=== PATIENT | female | born 1995 | race Caucasian/White ===

== ENCOUNTER 2016-11-03 01:04 | Emergency (ER) | payer OTHER, BC ==
[2016-11-03] MEDS ORDERED: Ondansetron INJ* 2 MG/ML VIAL IV ONE (01:19)
[2016-11-03] MEDS ORDERED: Ketorolac INJ* 30 MG/ML 1 ML VIAL IV PUSH ONE (01:19)
[2016-11-03] MEDS ORDERED: NS 0.9% 1000 ML* 1,000 ML IV ONE (01:19)
[2016-11-03] MEDS ORDERED: DICYCLOMINE HCL* 20 MG/2 ML VIAL IM ONE (01:19)
[2016-11-03 02:01] LABS: Hematocrit 50 % (35-47); Hemoglobin 16.6 g/dl (12.0-16.0); Mean Corpuscular HGB Conc 33 g/dl (31-36); Mean Corpuscular Hemoglobin 31 pg (27-31); Mean Corpuscular Volume 94 fL (80-97); Mean Platelet Volume 9 um3 (7.4-10.4); Red Blood Count 5.29 10^6/ul (4.0-5.4); Red Cell Distribution Width 13 % (10.5-15); White Blood Count 11.3 10^3/ul (3.5-10.8)
[2016-11-03 02:14] LABS: ALT 28 U/L (7-52); Albumin 5.1 g/dL (3.2-5.2); Alkaline Phosphatase 62 U/L (34-104); BUN/Creatinine Ratio 15.7 (8-20); Blood Urea Nitrogen 14 mg/dL (6-24); CO2 Carbon Dioxide 19 mmol/L (22-32); Calcium 10.9 mg/dL (8.6-10.3); Chloride 102 mmol/L (101-111); EGFR Non-African American 80.9 (>60); Globulin 4.2 g/dL (2-4); Glucose 122 mg/dL (70-100); Lipase 29 U/L (11.0-82.0); Sodium 134 mmol/L (133-145); Total Protein 9.3 g/dL (6.4-8.9)
[2016-11-03 02:35] LABS: AST 32 U/L (13-39); Anion Gap 13 mmol/L (2-11); Potassium 4.2 mmol/L (3.5-5.0)
[2016-11-03] MEDS ORDERED: Iohexol 300* (CONTRAST) 10 ML SDV IV ONE (02:35)
--- NOTE | 2016-11-03 04:21 | ED ---
Abdominal Pain/Female - HPI Summary HPI Summary: Patient presents for evaluation of abdominal pain and nausea. She is concerned for recurrent bowel obstructions. Denies systemic symptoms, new or bad foods. No allev factors attempted. Did not call her PCP or GI doctor today. - History of Current Complaint Chief Complaint: EDNauseaVomitMaría Elenaarrnicole Stated Complaint: GENERAL ILLNESS Time Seen by Provider: 11/03/16 01:12 Hx Obtained From: Patient, Family/Bridge Repair Crew Person Onset/Duration: Gradual Onset Timing: Intermittent Episode Lasting Severity Initially: Moderate Severity Currently: Moderate Pain Intensity: 10 Allergies/Adverse Reactions: Allergies Allergy/AdvReac Type Severity Reaction Status Date / Time Mercaptomerin Allergy Unknown Verified 08/02/16 16:13 Reaction Details PMH/Surg Hx/FS Hx/Imm Hx Endocrine/Hematology History: Denies: Hx Diabetes Cardiovascular History: Denies: Hx Congestive Heart Failure, Hx Hypertension Respiratory History: Reports: Hx Asthma - exercise induced History: Denies: Hx Dialysis, Hx Renal Disease - Surgical History Surgery Procedure, Year, and Place: mult. for crohn's/intuss. has ostomy now Infectious Disease History: No Infectious Disease History: Denies: Traveled Outside the [place] in Last 30 Days - Family History Known Family History: Positive: Hypertension, Diabetes, Other - Thyroid disease Negative: Cardiac Disease - Social History Alcohol Use: None Substance Use Type: Reports: None Smoking Status (MU): Never Smoked Tobacco Review of Systems Negative: Fever, Chills Positive: Abdominal Pain, Nausea All Other Systems Reviewed And Are Negative: Yes Physical Exam Triage Information Reviewed: Yes Vital Signs On Initial Exam: Initial Vitals Temp Pulse Resp BP Pulse Ox 96.5 F 106 16 108/68 100 11/03/16 01:09 11/03/16 01:09 11/03/16 01:09 11/03/16 01:09 11/03/16 01:09 Vital Signs Reviewed: Yes Appearance: Positive: Well-Appearing, Well-Nourished, Pain Distress Skin: Positive: Warm, Skin Color Reflects Adequate Perfusion, Dry Respiratory/Lung Sounds: Positive: Clear to Auscultation, Breath Sounds Present Cardiovascular: Positive: Normal, RRR, Pulses are Symmetrical in both Upper and Lower Extremities, Tachycardia Abdomen Description: Positive: No Organomegaly, Soft, Other: - RLQ ostomy is pink and viable. Diffusely ttp.. Negative: CVA Tenderness (R), CVA Tenderness (L), Distended, Guarding, Hernia @ Bowel Sounds: Positive: Present Musculoskeletal: Positive: Normal, Strength/ROM Intact Neurological: Positive: Normal, Sensory/Motor Intact, Alert, Oriented to Person Place, Time, CN Intact II-III, Reflexes Intact Diagnostics - Vital Signs Vital Signs Temp Pulse Resp BP Pulse Ox 11/03/16 01:09 96.5 F 106 16 108/68 100 - Laboratory Lab Results: Lab Results 11/03/16 11/03/16 Range/Units 01:45 01:45 WBC 11.3 H (3.5-10.8) 10^3/ul RBC 5.29 (4.0-5.4) 10^6/ul Hgb 16.6 H (12.0-16.0) g/dl Hct 50 H (35-47) % MCV 94 (80-97) fL MCH 31 (27-31) pg MCHC 33 (31-36) g/dl RDW 13 (10.5-15) % Plt Count 208 (150-450) 10^3/ul MPV 9 (7.4-10.4) um3 Neut % (Auto) 87.0 H (38-83) % Lymph % (Auto) 4.7 L (25-47) % Whiteside % (Auto) 6.7 (1-9) % Eos % (Auto) 1.5 (0-6) % Baso % (Auto) 0.1 (0-2) % Absolute Neuts (auto) 9.9 H (1.5-7.7) 10^3/ul Absolute Lymphs (auto) 0.5 L (1.0-4.8) 10^3/ul Absolute Monos (auto) 0.8 (0-0.8) 10^3/ul Absolute Eos (auto) 0.2 (0-0.6) 10^3/ul Absolute Basos (auto) 0 (0-0.2) 10^3/ul Absolute Nucleated RBC 0.01 10^3/ul Nucleated RBC % 0 Sodium 134 (133-145) mmol/L Potassium 4.2 (3.5-5.0) mmol/L Chloride 102 (101-111) mmol/L Carbon Dioxide 19 L (22-32) mmol/L Anion Gap 13 H (2-11) mmol/L BUN 14 (6-24) mg/dL Creatinine 0.89 (0.51-0.95) mg/dL Est GFR ( Amer) 104.0 (>60) Est GFR (Non-Af Amer) 80.9 (>60) BUN/Creatinine Ratio 15.7 (8-20) Glucose 122 H (70-100) mg/dL Calcium 10.9 H (8.6-10.3) mg/dL Total Bilirubin 0.60 (0.2-1.0) mg/dL AST 32 (13-39) U/L ALT 28 (7-52) U/L Alkaline Phosphatase 62 (34-104) U/L Total Protein 9.3 H (6.4-8.9) g/dL Albumin 5.1 (3.2-5.2) g/dL Globulin 4.2 H (2-4) g/dL Albumin/Globulin Ratio 1.2 (1-3) Lipase 29 (11.0-82.0) U/L Beta HCG, Quant < 0.60 mIU/mL Result Diagrams: 11/03/16 01:45 11/03/16 01:45 Lab Statement: Any lab studies that have been ordered have been reviewed, and results considered in the medical decision making process. Abdominal Pain Fem Course/Dx - Diagnoses Differential Diagnosis: Positive: Bowel Obstruction, Constipation, Diverticulitis, Irritable Bowel Syndrome, Other - Unclear whether this is PSBO, IBD. Soft benign abdomen. CT for structural cause. Provider Diagnoses: Abdominal pain Discharge - Discharge Plan Condition: Stable Disposition: HOME Prescriptions: Dicyclomine CAP* [Bentyl CAP*] 20 mg PO TID PRN #20 cap PRN Reason: Abdominal Pain Ondansetron TAB* [Zofran Tab*] 8 mg PO Q6H PRN #20 tab PRN Reason: Nausea Patient Education Materials: Abdominal Pain (ED) Referrals: [facility] CINDY Arrington [Primary Care Provider] -
[2016-11-03 05:35] VITALS: BP 87/48
--- NOTE | 2016-11-03 09:29 | RAD ---
CLINICAL HISTORY: Worsening abdominal pain with nausea and vomiting in a patient with Crohn's disease COMPARISON: CT abdomen pelvis dated June 28, 2015 TECHNIQUE: Contrast enhanced CT examination of the abdomen and pelvis from the lung bases through the initial tuberosities. The patient received 93 mL Omnipaque 300 intravenously prior to imaging.The patient received oral contrast as well prior to imaging. FINDINGS: VISUALIZED LUNG BASES: The visualized lung bases are grossly clear. There is no pleural effusion. ABDOMEN AND PELVIS: The liver, spleen, pancreas and adrenal glands are grossly normal in appearance. The gallbladder is normal. The kidneys are normal in appearance without focal mass, calcification or signs of hydronephrosis. Evaluation of the gastrointestinal tract is limited in the absence of oral contrast. There is thickening of the gastric pylorus measuring up to 7 mm in thickness (axial image 65 and coronal image 18). The patient appears to be status post colectomy. The right abdominal ostomy does not exhibit any acute inflammatory change or signs of obstruction. Fluid is seen throughout much of the length of the patient's distal small bowel. Innumerable mesenteric lymph nodes are visualized, top normal in short axis diameter measuring up to 8 mm. There is no retroperitoneal lymphadenopathy. There is a small to moderate amount of free fluid in the pelvis. The abdominal aorta and iliac arteries are normal in course and diameter. There are no sinister bone lesions. IMPRESSION: 1. Questionable thickening of the gastric pylorus could be seen in the setting of gastritis/duodenitis or may simply be the consequence of underdistention. 2. Liquid is seen throughout much of the patient's distal small bowel but there is no definite small bowel wall thickening or signs of obstruction. This appearance could be related to the patient's known chronic inflammatory bowel disease or represent infectious enteritis. 3. Inflammatory changes include mild mesenteric lymphadenopathy as well as free fluid in the pelvis, the latter can be seen normally in women of reproductive age.
== END 2016-11-03 04:35 | disposition home or self-care (01) ==
LOC: ED 01:04
DX: R10.9 Unspecified abdominal pain (principal)
CPT/HCPCS: 36415; 74177; 80053; 83690; 84702; 85025; 96360; 96372; 96374; 96375; 99284; J0500; J1885; J2405; Q9967

== ENCOUNTER 2017-12-15 07:12 | Emergency (ER) | payer OTHER, BC ==
[2017-12-15 07:23] VITALS: BP 110/71
[2017-12-15] MEDS ORDERED: Albuterol/Ipratropium NEB.SOL* Albuterol 2.5 MG/Ipratropium 0.5 MG 3 ML INH ONE (08:12)
--- NOTE | 2017-12-15 10:13 | RAD ---
Indication: Cough. Exercise-induced asthma. Comparison: November 03, [address] TECHNIQUE: Dual energy PA and routine lateral views of the chest were obtained. Report: No focal pulmonary lesion, compelling alveolar consolidation, pleural effusion, pneumothorax. The heart, pulmonary vasculature, and mediastinal contours are unremarkable. 40 degrees Thakur angle dextroscoliosis measured between T4 and T12 with reversal cephalad and caudal. IMPRESSION: No evidence for acute intrathoracic disease.
--- NOTE | 2017-12-22 19:02 | UC ---
Kirk Lira Jason, scrib[facility] for [facility] MD on 12/15/17 at 1054 . Respiratory Complaint HPI - HPI Summary HPI Summary: In Room Note: This patient is a 22 year old F presenting to [facility] accompanied by male partner with a chief complaint of cough since 2 weeks ago. She states that her cough has gotten work in the last 2 days and couldnt sleep though night because of the cough. She includes she does not have a thermometer so her temperature was not recorded. Additionally due to her history of Chrons disease she has had multiple surgeries between the ages of [age]. The patient rates the pain 7/10 in severity. Symptoms aggravated by nothing. Symptoms alleviated by nothing. Patient reports congestion, headache, non-productive cough, chills, nausea, loss of appetite, sore throat, and chest discomfort. Patient denies vomiting, and diarrhea. Patient has never had pneumonia in the past. Additionally, she was told 2 months ago that she might have walking pneumonia. Physicians Note: Vital signs stable, temperature 99.6, pulse ox 99. 7/10 sinus discomfort, non- smoker. Visit history: non-contributory to present complaint, exercise induced asthma. Nurses Note: pt states she has been sick for the past 2 weeks. pt c/o cough , layne, sinus congestion, tightness with a dry cough, nausea, decreased appitite, chills. pt states cough is worse at night. - History of Current Complaint Chief Complaint: UCRespiratory Stated Complaint: COUGH Time Seen by Provider: 12/15/17 07:27 Hx Obtained From: Patient Onset/Duration: Lasting Weeks - since 2 weeks ago, Still Present Pain Intensity: 7 Pain Scale Used: 0-10 Numeric Character: Cough: Nonproductive Associated Signs And Symptoms: Positive: Negative - vomiting and diarrhea, Nasal Congestion. Negative: Fever - Allergies/Home Medications Allergies/Adverse Reactions: Allergies Allergy/AdvReac Type Severity Reaction Status Date / Time mercaptopurine Allergy Unknown Verified 12/15/17 07:23 Reaction Details Home Medications: Home Medications D-Methorphan/PE/Acetaminophen [Daytime Cold Multi-Symp Gelcap] 1 each PO [History] Dm/Acetaminophen/Doxylamine [Vicks Nyquil Cold & Flu N 15-6.25-325 mg] 1 cap PO 12/15/17 [History] PMH/Surg Hx/FS Hx/Imm Hx Previously Healthy: No Respiratory History: Asthma - exercise induced GI/ History: Other Other GI/ History: Chron's disease - Surgical History Surgical History: Yes Surgery Procedure, Year, and Place: mult. for crohn's/intuss. has ostomy now - Family History Known Family History: Positive: Hypertension, Diabetes, Other - Thyroid disease Negative: Cardiac Disease - Social History Occupation: Student Alcohol Use: Rare Substance Use Type: None Smoking Status (MU): Never Smoked Tobacco Review of Systems Constitutional: Chills ENT: Sore Throat, Sinus Congestion Respiratory: Cough - non productive Cardiovascular: Other - chest discomfort Gastrointestinal: Negative - vomiting, diarrhea, Nausea, Other - loss of appetite Neurological: Headache All Other Systems Reviewed And Are Negative: Yes Physical Exam - Summary Physical Exam Summary: Appearance: The patient is well-appearing, is in no pain distress, and is well- nourished. Eyes: Conjunctiva are clear. ENT: The hearing is grossly normal, the pharynx is normal, and the TMs are normal. There is no muffled or hoarse voice. Discomfort with palpation over maxillary sinuses. Tender anterior cervical adenopathy, bilateral. Mild erythema of the pharynx with posterior lymph patches. Neck: The neck is supple and there is no lymphadenopathy. Respiratory: The chest is nontender. The lungs are clear, there are normal breath sounds, and there is no respiratory distress. Cardiovascular: Heart is regular rate and rhythm. There is no murmur. Abdomen: The abdomen is soft and nontender. There is no organomegaly. Bowel sounds: present Musculoskeletal: Strength is intact. The patient moves all extremities. Neurological: The patient is alert. Psychological: The patient displays age appropriate behavior Skin: Negative for rashes Triage Information Reviewed: Yes Vital Signs: Initial Vital Signs Temp 99.6 F 12/15/17 07:18 Pulse 87 12/15/17 07:18 Resp 18 12/15/17 07:18 BP 110/71 12/15/17 07:18 Pulse Ox 99 12/15/17 07:18 Vital Signs Reviewed: Yes Diagnostic Evaluation - Laboratory O2 Sat by Pulse Oximetry: 99 - Radiology Radiology Interpretation Completed By: Radiologist - CXR reveals, per radiologist, No evidence for acute intrathoracic disease. ED physician has reviewed this radiology report. Respiratory Course/Dx - Course Course Of Treatment: 22 year old with significant history of Chrons disease complains of cough and chest discomfort for 2 weeks. Patient is afebrile. Pulse ox is 99. After treatment with albuterol inhalation air exchange significantly improved. CXR was negative for pneumonia. My diagnosis is asthma, bronchospasm, bronchitis or atypical pneumonia. I will treat the patient with albuterol and spacer and Zithromax. She will follow up as needed with PCP in 2 days. Medications have been included in the original chart and reviewed. Patient has been given an antibiotic because findings on physical examination and health history. The risks and benefits of antibiotic treatment have been discussed and patient has voiced understanding of these risks including the possibility of developing clostridium difficile enterocolitis. - Differential Dx/Diagnosis Differential Diagnosis/HQI/PQRI: Asthma, Lower Resp Infection Provider Diagnoses: asthma, bronchospasm, bronchitis or atypical pneumonia Discharge - Sign-Out/Discharge Documenting (check all that apply): Discharge - Discharge Plan Condition: Stable Disposition: HOME Prescriptions: Albuterol HFA INHALER* [Ventolin HFA Inhaler*] 1 - 2 puff INH Q4H PRN #1 mdi PRN Reason: Shortness Of Breath Azithromycin TAB* [Zithromax TAB*] 250 mg PO DAILY #6 tab Inhaler, Assist Devices [Aerochamber Mv] 1 mis XX Q6HR #1 mis Patient Education Materials: Asthma (ED), Acute Bronchitis (ED) Forms: *Gen. Provider Communication Referrals: No Primary Care Phys,NOPCP [Primary Care Provider] - Additional Instructions: PLEASE SEEK CARE AT THE EMERGENCY DEPARTMENT IF SYMPTOMS WORSEN OR IF NEW SYMPTOMS DEVELOP. FOLLOW UP WITH YOUR PRIMARY CARE PHYSICIAN - Billing Disposition and Condition Condition: STABLE Disposition: HOME The documentation as recorded by the Kirk martin Jason accurately reflects the service I personally performed and the decisions made by me, Dano Walsh MD.
== END 2017-12-15 09:37 | disposition home or self-care (01) ==
LOC: UCEAST 07:12
DX: K50.90 Crohn's disease, unspecified, without complications (principal)
CPT/HCPCS: 71046; 99212; A9270-GY; G0463